=== PATIENT | female | born 1965 | race Caucasian/White ===

== ENCOUNTER 2017-01-25 14:38 | Emergency (ER) | payer MEDICARE, OTHER ==
[~2017-01-25 14:38] MED LIST: ACYCLOVIR400 MG PO; ANTIVERT PO; ASPIR-TRIN325 MG PO; ATIVAN PO; ATRIPLA1 TAB BC; BACTRIM DS TABL1 TA1 PO; BAYER ASPIRIN325 M1 PO; BENTYL20 M1 PO; CHANTIX1 MG BC; CIPRO PO; CIPRO250 M1 PO; COUMADIN4 MG PO; DICYCLOMINE HCL20 MG; DIFLUCAN PO; FLAGYL PO; FLEXERIL10 M1 PO; HORMONE REPLACEMENT; LIDOCAINE 3% TOP; LIPITOR40 MG; LOMOTIL TABLET1 TAB PO; LORTAB 5/500 TA1 TA1 PO; LORTAB 7.5-5001 TAB PO; MACROBID100 MG PO; METRONIDAZOLE PO; NORCO1 TAB 10/3 PO; OXYCODONE HCL5 MG PO; PEPCID AC20 M2 PO; PEPCID40 MG; PERCOCET 5-3251 TAB PO; PLAVIX PO; PRILOSEC20 M1 PO; PYRIDIUM PO; VICODIN 5/1 TAB 5/50 PO; VOLTAREN50 MG PO; VOLTAREN75 MG PO; WELLBUTRIN; WELLBUTRIN75 M1; ZOFRAN ODT4 MG PO; ZOFRANODT PO; ZOVIRAX800 MG PO
[2017-01-25] MEDS ORDERED: KLONOPIN2 MG PO (14:45)
== END 2017-01-25 15:25 | disposition home or self-care (01) ==
LOC: SED 14:38
DX: F41.9 Anxiety disorder, unspecified (principal); Z21 Asymptomatic human immunodeficiency virus [HIV] infection status; F17.200 Nicotine dependence, unspecified, uncomplicated; Z88.2 Allergy status to sulfonamides; Z88.8 Allergy status to other drugs, medicaments and biological substances; Z79.899 Other long term (current) drug therapy
CPT/HCPCS: 99281